=== PATIENT | male | born 1960 | race Caucasian/White ===

== ENCOUNTER 2017-11-05 11:24 | Emergency (ER) | payer OTHER ==
[~2017-11-05] VITALS: Ht 167.6 cm; Wt 141.2 kg
[~2017-11-05 11:24] MED LIST: ACCUPRIL20 MG PO; HYCODAN SYRUP480 ML PO; LIPITOR40 MG PO; PERCOCET 5/31 TABLET PO; PLAVIX75 MG PO; PRINIVIL20 MG PO; VALIUM5 MG PO; ZITHROMAX Z-PA250 MG PO
[2017-11-05 14:20] LABS: BASOPHIL COUNT 0.1 K/uL (0-0.1); EOSINOPHIL COUNT 0.2 K/uL (0-0.3); HEMATOCRIT 45.4 % (38.0-50.0); IMMATURE GRANULOCYTE (%) 0.3 % (0.0-0.7); INSTRUMENT ABS NEUTROPHIL CT 5.8 K/uL; LYMPHOCYTE COUNT 2.8 K/uL (1.0-2.8); MCH 32.1 PG (29.0-34.0); MCHC 33.5 G/DL (30.0-36.0); MCV 95.8 FL (86-99); MEAN PLAT.VOLUME 9.7 uM^3 (9.0-12.4); MONOCYTE COUNT 0.8 K/uL (0-0.8); NEUTROPHIL (%) 60.2 % (45-76); NEUTROPHIL COUNT 5.8 K/uL (1.8-6.4); PLATELET COUNT 264 K/uL (156-360); RBC DIS.WIDTH-CV 12.1 % (11.8-14.6); RBC DIS.WIDTH-SD 42.5 % (39-53); RED BLOOD COUNT 4.74 M/uL (4.00-5.50); WHITE BLOOD COUNT 9.6 K/uL (4.1-10.2)
[2017-11-05 14:27] LABS: INTER. NORMALIZED RATIO 1.1; PROTHROMBIN TIME 12.1 SEC (10.2-12.9)
[2017-11-05 14:29] LABS: PTT 31.3 SEC (25-37)
[2017-11-05 14:34] LABS: CHLORIDE 101 mEq/L (99-109); POTASSIUM 4.5 mEq/L (3.7-5.4); SODIUM 138 mEq/L (136-147)
[2017-11-05 14:36] LABS: GLUCOSE 81 mg/dL (70-99)
[2017-11-05 14:37] LABS: ANION GAP 12 MEQ/L (2-14)
[2017-11-05 14:39] LABS: GFR ESTIMATE (CALCULATED) > 59 mL/min/
[2017-11-05 14:40] LABS: UREA NITROGEN (BUN) 11 mg/dL (9-23)
[2017-11-05 14:44] LABS: TROP-I INTERPRETATION NEGATIVE; TROPONIN-I 0.02 ng/mL (0.0-0.30)
[2017-11-05] MEDS ORDERED: NAPROSYN500 MG PO (15:59)
[2017-11-05] MEDS ORDERED: FLEXERIL10 MG PO (15:59)
[2017-11-05 16:13] VITALS: BP 123/81
== END 2017-11-05 16:49 | disposition home or self-care (01) ==
LOC: EME 11:24
PROVIDERS: Emergency Medicine
DX: M54.9 Dorsalgia, unspecified (principal); R10.9 Unspecified abdominal pain; F17.200 Nicotine dependence, unspecified, uncomplicated; E66.01 Morbid (severe) obesity due to excess calories; Z68.43 Body mass index [BMI] 50.0-59.9, adult; I10 Essential (primary) hypertension; E78.5 Hyperlipidemia, unspecified; G47.30 Sleep apnea, unspecified; I25.2 Old myocardial infarction; Z95.5 Presence of coronary angioplasty implant and graft; Z79.82 Long term (current) use of aspirin
CPT/HCPCS: 71020; 71275; 74177; 80048; 84484; 85025; 85379; 85610; 85730; 93005; 99281; 99285; J1885